=== PATIENT | female | born 1950 | race Caucasian/White ===

== ENCOUNTER 2016-12-08 18:36 | Inpatient (IN) | payer OTHER ==
[~2016-12-08] VITALS: Ht 152.4 cm; Wt 74.8 kg
[2016-12-08 20:13] LABS: BASOPHIL % 1.8 % (0-2); RED CELL DISTRIBUTION WIDTH 13.4 % (11.5-14.5)
[2016-12-08 20:23] LABS: CALCIUM 9.2 mg/dL (8.5-10.1); CHLORIDE SERUM 103 mmol/L (98-107); CREATININE SERUM 0.8 mg/dL (0.6-1.0); GFR1 > 60 mL/min; GLUCOSE SERUM 133 mg/dL (74-106); POTASSIUM SERUM 3.5 mmol/L (3.5-5.1); SODIUM SERUM 137 mmol/L (136-145)
[2016-12-08 20:24] LABS: PLATELET COUNT 594 x10^3mcL (130-400)
[2016-12-08 20:27] LABS: ALKALINE PHOSPHATASE 200 U/L (46-116); ALT/SGPT 75 U/L (14-59); AMYLASE 26 U/L (25-115); AST/SGOT 47 U/L (15-37); BILIRUBIN TOTAL 0.71 mg/dL (0.20-1.00); LIPASE 67 IU/L (73-393); TOTAL PROTEIN, SERUM 7.9 g/dL (6.4-8.2)
[2016-12-08 20:32] LABS: ALBUMIN 1.9 g/dL (3.4-5.0)
[2016-12-08] MEDS ORDERED: AMLODIPINE BES2.5 M1 PO (22:43)
[2016-12-08 23:12] LABS: UA SPECIFIC GRAVITY <=1.005 (1.005-1.035); microscopic required? YES; urine erythrocyte 2+ (NEGATIVE)
[2016-12-09 00:25] VITALS: BP 112/62
[2016-12-09 00:43] LABS: MAGNESIUM 2.2 mg/dL (1.8-2.4); PHOSPHOROUS 2.9 mg/dL (2.5-4.9); T3 TOTAL 0.78 ng/mL
[2016-12-09 00:44] LABS: CHOLESTEROL/HDL RATIO 4.6
[2016-12-09 00:51] LABS: T4(THYROXINE) 11.2 ug/dL (4.7-13.3)
[2016-12-09 00:52] LABS: FREE T4 2.07 ng/dL (0.76-1.46)
[2016-12-09 01:40] VITALS: Ht 152.4 cm; Wt 74.8 kg
[2016-12-09 06:43] VITALS: BP 115/68
[2016-12-09 07:13] LABS: CALCIUM 8.7 mg/dL (8.5-10.1); CARBON DIOXIDE 26.7 mmol/L (21-32); CHLORIDE SERUM 104 mmol/L (98-107); CREATININE SERUM 0.7 mg/dL (0.6-1.0); GFR1 > 60 mL/min; GLUCOSE SERUM 102 mg/dL (74-106); SODIUM SERUM 138 mmol/L (136-145)
[2016-12-09 07:18] LABS: BASOPHIL % 0.2 % (0-2); RED CELL DISTRIBUTION WIDTH 13.4 % (11.5-14.5)
[2016-12-09 07:19] LABS: PLATELET COUNT 604 x10^3mcL (130-400)
[2016-12-09 08:59] VITALS: BP 92/53
[2016-12-09 12:47] VITALS: BP 97/60
[2016-12-09 18:07] VITALS: BP 96/53
[2016-12-09 21:38] VITALS: BP 114/61
[2016-12-10 06:18] VITALS: BP 121/63
[2016-12-10 06:58] LABS: BASOPHIL % 0.5 % (0-2); RED CELL DISTRIBUTION WIDTH 13.5 % (11.5-14.5)
[2016-12-10 07:02] LABS: CALCIUM 8.1 mg/dL (8.5-10.1); CARBON DIOXIDE 24.8 mmol/L (21-32); CHLORIDE SERUM 106 mmol/L (98-107); CREATININE SERUM 0.7 mg/dL (0.6-1.0); GFR1 > 60 mL/min; GLUCOSE SERUM 117 mg/dL (74-106); POTASSIUM SERUM 3.9 mmol/L (3.5-5.1); SODIUM SERUM 138 mmol/L (136-145)
[2016-12-10 07:15] LABS: PLATELET COUNT 560 x10^3mcL (130-400)
[2016-12-10 09:13] VITALS: BP 112/76
[2016-12-10 12:30] VITALS: BP 103/61
[2016-12-10 17:53] VITALS: BP 133/72
[2016-12-10 21:55] VITALS: BP 90/55
[2016-12-11 06:04] VITALS: BP 97/63
[2016-12-11 06:07] LABS: RED CELL DISTRIBUTION WIDTH 13.5 % (11.5-14.5)
[2016-12-11 06:24] LABS: CALCIUM 7.6 mg/dL (8.5-10.1); CARBON DIOXIDE 25.3 mmol/L (21-32); CREATININE SERUM 1.1 mg/dL (0.6-1.0); POTASSIUM SERUM 4.4 mmol/L (3.5-5.1)
[2016-12-11 07:42] LABS: PLATELET COUNT 440 x10^3mcL (130-400)
[2016-12-11 09:37] VITALS: BP 99/68
[2016-12-11 10:44] LABS: BAND NEUTROPHIL 13 % (0-10); BASOPHIL 0 % (0-2); MONOCYTE 2 % (0-7); SEGMENTED NEUTROPHILS 82 % (37-75)
[2016-12-11 10:46] LABS: PLATELET MORPHOLOGY PLATELETS INCREASED
[2016-12-11 13:20] VITALS: BP 98/55
[2016-12-11 14:44] LABS: PLATELET COUNT 398 x10^3mcL (130-400); RED CELL DISTRIBUTION WIDTH 14.2 % (11.5-14.5)
[2016-12-11 15:09] LABS: BAND NEUTROPHIL 23 % (0-10); BASOPHIL 0 % (0-2); MONOCYTE 4 % (0-7); SEGMENTED NEUTROPHILS 70 % (37-75)
[2016-12-11 15:10] LABS: PLATELET MORPHOLOGY PLATELETS INCREASED
[2016-12-11 17:34] VITALS: BP 93/60
[2016-12-11 22:32] VITALS: BP 105/61
[2016-12-12 07:07] LABS: CALCIUM 7.8 mg/dL (8.5-10.1); CARBON DIOXIDE 24.3 mmol/L (21-32); CHLORIDE SERUM 112 mmol/L (98-107); CREATININE SERUM 0.7 mg/dL (0.6-1.0); GFR1 > 60 mL/min; GLUCOSE SERUM 89 mg/dL (74-106); SODIUM SERUM 142 mmol/L (136-145)
[2016-12-12 07:09] LABS: RED CELL DISTRIBUTION WIDTH 13.1 % (11.5-14.5)
[2016-12-12 07:10] VITALS: BP 116/63
[2016-12-12 07:13] LABS: PLATELET COUNT 429 x10^3mcL (130-400)
[2016-12-12 09:40] VITALS: BP 133/79
[2016-12-12 11:30] LABS: BAND NEUTROPHIL 19 % (0-10); BASOPHIL 0 % (0-2); MONOCYTE 2 % (0-7); PLATELET MORPHOLOGY PLATELETS INCREASED; SEGMENTED NEUTROPHILS 70 % (37-75); rbc morphology (normal/abnorm) ABNORMAL (NORMAL)
[2016-12-12] MEDS ORDERED: CIPRO500 MG PO (13:59)
[2016-12-12] MEDS ORDERED: ZOF4 PO (14:00)
[2016-12-12] MEDS ORDERED: LAC PO (14:00)
[2016-12-12] MEDS ORDERED: APAP/HYDROCODON1 T13 PO (14:00)
[2016-12-12] MEDS ORDERED: COL100 PO (14:01)
[2016-12-12] MEDS ORDERED: ASPIR 8181 MG PO (14:18)
[2016-12-12] MEDS ORDERED: LIPI10 PO (14:18)
[2016-12-12 14:40] VITALS: BP 145/80
[2016-12-12 14:41] VITALS: BP 133/79
== END 2016-12-12 17:58 | disposition home or self-care (01) | DRG 668 ==
LOC: ED 18:36 → DU 22:00 → MU 12-12 06:04
PROVIDERS: Emergency Medicine; Family Medicine; Urology; ADMIT Family Medicine
PROC: BT1FYZZ Fluoroscopy of Left Kidney, Ureter and Bladder using Other Contrast (ICD-10-PCS; 2016-12-10)
PROC: 0T778DZ Dilation of Left Ureter with Intraluminal Device, Via Natural or Artificial Opening Endoscopic (ICD-10-PCS; principal; 2016-12-10 15:00)
PROC: 0TC78ZZ Extirpation of Matter from Left Ureter, Via Natural or Artificial Opening Endoscopic (ICD-10-PCS; principal; 2016-12-10 15:00)
DX: N13.2 Hydronephrosis with renal and ureteral calculous obstruction (principal); E43 Unspecified severe protein-calorie malnutrition; Q61.4 Renal dysplasia; N39.0 Urinary tract infection, site not specified; N13.30 Unspecified hydronephrosis; N17.0 Acute kidney failure with tubular necrosis; I10 Essential (primary) hypertension; D64.9 Anemia, unspecified; D47.3 Essential (hemorrhagic) thrombocythemia; E66.9 Obesity, unspecified; I69.320 Aphasia following cerebral infarction; Z68.32 Body mass index [BMI] 32.0-32.9, adult; I69.364 Other paralytic syndrome following cerebral infarction affecting left non-dominant side
CPT/HCPCS: 51610; 83880; 84439; 90732; 94150; C1758; C1769; C2625; J0696; J1170; J1885; J2270; J2405; J2704; J3010; J3490; J7030; J7120; Q0092; Q9967

== ENCOUNTER 2017-08-20 18:16 | Inpatient (IN) | payer OTHER ==
[~2017-08-20] VITALS: Ht 152.4 cm; Wt 60.0 kg
[~2017-08-20 18:16] MED LIST: AMLODIPINE BES2.5 M1 PO; APAP/HYDROCODON1 T13 PO; ASPIR 8181 MG PO; CIPRO500 MG PO; COL100 PO; LAC PO; LIPI10 PO; ZOF4 PO
[2017-08-20 19:02] LABS: BASOPHIL % 0.1 % (0-2)
[2017-08-20 19:05] LABS: PLATELET COUNT 551 x10^3mcL (130-400)
[2017-08-20 19:07] LABS: CALCIUM 8.6 mg/dL (8.5-10.1); CARBON DIOXIDE 26.2 mmol/L (21-32); CHLORIDE SERUM 97 mmol/L (98-107); CREATININE SERUM 0.9 mg/dL (0.6-1.0); GFR1 > 60 mL/min; GLUCOSE SERUM 102 mg/dL (74-106); POTASSIUM SERUM 4.3 mmol/L (3.5-5.1); SODIUM SERUM 129 mmol/L (136-145)
[2017-08-20 19:12] LABS: ALBUMIN 1.8 g/dL (3.4-5.0); ALKALINE PHOSPHATASE 201 U/L (46-116); ALT/SGPT 130 U/L (14-59); AST/SGOT 147 U/L (15-37); TOTAL PROTEIN, SERUM 9.4 g/dL (6.4-8.2); UA SPECIFIC GRAVITY 1.015 (1.005-1.035); microscopic required? YES
[2017-08-20 19:14] LABS: urine erythrocyte 3+ (NEGATIVE)
[2017-08-20 19:55] LABS: MAGNESIUM 1.8 mg/dL (1.8-2.4); PHOSPHOROUS 2.7 mg/dL (2.5-4.9)
[2017-08-20 20:02] LABS: T3 TOTAL 0.71 ng/mL
[2017-08-20 20:03] LABS: FREE T4 1.53 ng/dL (0.76-1.46); FREE THYROXINE INDEX 3.6 ug/dL (1.4-4.5); T4(THYROXINE) 10.4 ug/dL (4.7-13.3)
[2017-08-20 20:34] VITALS: BP 138/75
[2017-08-20 20:48] VITALS: BP 135/75
[2017-08-21 01:15] VITALS: BP 135/75
[2017-08-21 06:22] VITALS: BP 99/68
[2017-08-21 07:01] LABS: CALCIUM 8.4 mg/dL (8.5-10.1); CHLORIDE SERUM 102 mmol/L (98-107); CREATININE SERUM 0.8 mg/dL (0.6-1.0); GFR1 > 60 mL/min; GLUCOSE SERUM 77 mg/dL (74-106); POTASSIUM SERUM 4.2 mmol/L (3.5-5.1); SODIUM SERUM 136 mmol/L (136-145)
[2017-08-21 08:27] LABS: BASOPHIL % 0.9 % (0-2); PLATELET COUNT 390 x10^3mcL (130-400)
[2017-08-21 08:28] LABS: RED CELL DISTRIBUTION WIDTH 18.3 % (11.5-14.5)
[2017-08-21 08:29] LABS: rbc morphology (normal/abnorm) ABNORMAL (NORMAL)
[2017-08-21 09:35] VITALS: BP 134/75
[2017-08-21 11:04] LABS: IRON 51 ug/dL (50-170); TOTAL IRON BINDING CAPACITY 263 ug/dL (250-450)
[2017-08-21 11:21] LABS: RED BLOOD CELLS 3.74 M/mm3 (4.10-5.10)
[2017-08-21 13:32] VITALS: BP 109/59
[2017-08-21 17:58] VITALS: BP 135/80
[2017-08-21 21:10] VITALS: BP 111/51
[2017-08-22 05:24] VITALS: BP 120/76
[2017-08-22 06:37] LABS: BASOPHIL % 0.6 % (0-2); PLATELET COUNT 391 x10^3mcL (130-400)
[2017-08-22 06:47] LABS: RED CELL DISTRIBUTION WIDTH 18.2 % (11.5-14.5); rbc morphology (normal/abnorm) ABNORMAL (NORMAL)
[2017-08-22 06:48] LABS: CALCIUM 7.9 mg/dL (8.5-10.1); CARBON DIOXIDE 26.5 mmol/L (21-32); CHLORIDE SERUM 102 mmol/L (98-107); CREATININE SERUM 0.8 mg/dL (0.6-1.0); GFR1 > 60 mL/min; GLUCOSE SERUM 73 mg/dL (74-106); MAGNESIUM 2.1 mg/dL (1.8-2.4); PHOSPHOROUS 4.3 mg/dL (2.5-4.9); POTASSIUM SERUM 4.1 mmol/L (3.5-5.1); SODIUM SERUM 135 mmol/L (136-145)
[2017-08-22 08:55] VITALS: BP 121/76
[2017-08-22 13:56] VITALS: BP 106/70
[2017-08-22 17:27] VITALS: BP 117/72
[2017-08-22 20:18] VITALS: BP 118/57
[2017-08-23 05:06] VITALS: BP 113/57
[2017-08-23 09:22] VITALS: BP 111/49
[2017-08-23 13:18] VITALS: BP 116/76
[2017-08-23 17:30] VITALS: BP 110/57
[2017-08-23 20:33] VITALS: BP 127/77
[2017-08-24 04:57] VITALS: BP 134/68
[2017-08-24 06:19] LABS: CARBON DIOXIDE 26.1 mmol/L (21-32); CHLORIDE SERUM 105 mmol/L (98-107); CREATININE SERUM 0.6 mg/dL (0.6-1.0); GFR1 > 60 mL/min; GLUCOSE SERUM 78 mg/dL (74-106); MAGNESIUM 1.6 mg/dL (1.8-2.4); PHOSPHOROUS 2.7 mg/dL (2.5-4.9); POTASSIUM SERUM 3.9 mmol/L (3.5-5.1); SODIUM SERUM 138 mmol/L (136-145)
[2017-08-24 06:27] LABS: BILIRUBIN DIRECT 0.13 mg/dL (0.0-0.2); BILIRUBIN TOTAL 0.2 mg/dL (0.20-1.00)
[2017-08-24 06:29] LABS: ALBUMIN 1.3 g/dL (3.4-5.0)
[2017-08-24 08:23] LABS: PLATELET COUNT 305 x10^3mcL (130-400)
[2017-08-24 08:24] LABS: BASOPHIL % 0 % (0-2)
[2017-08-24 10:13] VITALS: BP 113/70
[2017-08-24 12:50] VITALS: BP 117/64
[2017-08-24 17:24] VITALS: BP 119/68
[2017-08-24 20:33] VITALS: BP 111/53
[2017-08-25 06:22] VITALS: BP 125/67
[2017-08-25 06:24] LABS: CALCIUM 7.6 mg/dL (8.5-10.1); CARBON DIOXIDE 27.2 mmol/L (21-32); CHLORIDE SERUM 106 mmol/L (98-107); CREATININE SERUM 0.7 mg/dL (0.6-1.0); GFR1 > 60 mL/min; GLUCOSE SERUM 82 mg/dL (74-106); POTASSIUM SERUM 3.7 mmol/L (3.5-5.1); SODIUM SERUM 141 mmol/L (136-145)
[2017-08-25 06:56] LABS: BASOPHIL % 0.1 % (0-2); PLATELET COUNT 392 x10^3mcL (130-400)
[2017-08-25 07:22] LABS: rbc morphology (normal/abnorm) ABNORMAL (NORMAL)
[2017-08-25 09:19] VITALS: BP 138/72
[2017-08-25 11:17] VITALS: Ht 152.4 cm; Wt 60.0 kg
[2017-08-25 17:34] VITALS: BP 110/62
[2017-08-25 17:36] VITALS: BP 119/43
[2017-08-25 21:32] VITALS: BP 111/64
[2017-08-26 05:24] VITALS: BP 109/69
[2017-08-26 07:19] LABS: PLATELET COUNT 441 x10^3mcL (130-400); RED CELL DISTRIBUTION WIDTH 18.6 % (11.5-14.5)
[2017-08-26 09:17] VITALS: BP 116/67
[2017-08-26 10:12] LABS: BAND NEUTROPHIL 12 % (0-10); BASOPHIL 0 % (0-2); METAMYELOCTE 1 % (0-2); MONOCYTE 2 % (0-7); SEGMENTED NEUTROPHILS 80 % (37-75)
[2017-08-26 10:15] LABS: PLATELET MORPHOLOGY PLATELETS INCREASED; rbc morphology (normal/abnorm) ABNORMAL (NORMAL)
[2017-08-26 12:58] VITALS: BP 114/71
[2017-08-26 13:13] LABS: PLATELET COUNT 414 x10^3mcL (130-400); RED CELL DISTRIBUTION WIDTH 18.6 % (11.5-14.5)
[2017-08-26 13:35] LABS: BAND NEUTROPHIL 6 % (0-10); BASOPHIL 0 % (0-2); MONOCYTE 1 % (0-7); SEGMENTED NEUTROPHILS 90 % (37-75); ovalocyte/elliptocyte 1+; rbc morphology (normal/abnorm) ABNORMAL (NORMAL)
[2017-08-26 13:37] LABS: PLATELET MORPHOLOGY LARGE PLATELET SEEN
[2017-08-26 17:12] VITALS: BP 135/69
[2017-08-26 21:18] VITALS: BP 113/65
[2017-08-27 05:54] VITALS: BP 117/63
[2017-08-27 06:49] LABS: PLATELET COUNT 399 x10^3mcL (130-400)
[2017-08-27 07:12] LABS: ALKALINE PHOSPHATASE 186 U/L (46-116); ALT/SGPT 21 U/L (14-59); AST/SGOT 19 U/L (15-37); BILIRUBIN TOTAL 0.52 mg/dL (0.20-1.00); CALCIUM 8.5 mg/dL (8.5-10.1); CARBON DIOXIDE 23.5 mmol/L (21-32); CHLORIDE SERUM 112 mmol/L (98-107); CREATININE SERUM 0.8 mg/dL (0.6-1.0); GFR1 > 60 mL/min; GLUCOSE SERUM 76 mg/dL (74-106); SODIUM SERUM 145 mmol/L (136-145)
[2017-08-27 07:14] LABS: ALBUMIN 1.4 g/dL (3.4-5.0)
[2017-08-27 07:24] LABS: RED CELL DISTRIBUTION WIDTH 19.1 % (11.5-14.5)
[2017-08-27 10:38] VITALS: BP 122/61
[2017-08-27 10:44] LABS: BAND NEUTROPHIL 4 % (0-10); BASOPHIL 0 % (0-2); MONOCYTE 3 % (0-7); SEGMENTED NEUTROPHILS 87 % (37-75)
[2017-08-27 10:45] LABS: PLATELET MORPHOLOGY PLATELETS INCREASED; rbc morphology (normal/abnorm) ABNORMAL (NORMAL)
[2017-08-27 10:46] LABS: ovalocyte/elliptocyte 1+
[2017-08-27 14:15] VITALS: BP 109/60
[2017-08-27 15:41] LABS: CALCIUM 8.3 mg/dL (8.5-10.1); CARBON DIOXIDE 22.1 mmol/L (21-32); CHLORIDE SERUM 115 mmol/L (98-107); CREATININE SERUM 0.9 mg/dL (0.6-1.0); GFR1 > 60 mL/min; GLUCOSE SERUM 90 mg/dL (74-106); SODIUM SERUM 148 mmol/L (136-145)
[2017-08-27 15:45] LABS: POTASSIUM SERUM 2.6 mmol/L (3.5-5.1)
[2017-08-27 17:50] VITALS: BP 102/67
[2017-08-27 21:40] VITALS: BP 112/61
[2017-08-28 02:01] LABS: CALCIUM 8.3 mg/dL (8.5-10.1); POTASSIUM SERUM 4.5 mmol/L (3.5-5.1)
[2017-08-28 05:30] VITALS: BP 103/65
[2017-08-28 06:27] LABS: CALCIUM 8.5 mg/dL (8.5-10.1); CARBON DIOXIDE 22.5 mmol/L (21-32); POTASSIUM SERUM 4.6 mmol/L (3.5-5.1)
[2017-08-28 07:07] LABS: PLATELET COUNT 461 x10^3mcL (130-400); RED CELL DISTRIBUTION WIDTH 19.3 % (11.5-14.5)
[2017-08-28 10:31] LABS: BAND NEUTROPHIL 1 % (0-10); MONOCYTE 6 % (0-7); SEGMENTED NEUTROPHILS 85 % (37-75)
[2017-08-28 10:32] LABS: rbc morphology (normal/abnorm) ABNORMAL (NORMAL)
[2017-08-28 10:33] LABS: PLATELET MORPHOLOGY PLT CLUMPS SEEN; ovalocyte/elliptocyte 1+; schistocyte (helmet cell) 1+
[2017-08-28 11:10] VITALS: BP 115/74
[2017-08-28 15:13] VITALS: BP 120/80
[2017-08-28 17:45] VITALS: BP 138/75
[2017-08-28 21:47] VITALS: BP 125/86
[2017-08-29 06:21] LABS: CALCIUM 8.8 mg/dL (8.5-10.1); CARBON DIOXIDE 21.4 mmol/L (21-32); CHLORIDE SERUM 119 mmol/L (98-107); CREATININE SERUM 0.9 mg/dL (0.6-1.0); GFR1 > 60 mL/min; GLUCOSE SERUM 131 mg/dL (74-106); MAGNESIUM 2.2 mg/dL (1.8-2.4); PHOSPHOROUS 3.1 mg/dL (2.5-4.9); POTASSIUM SERUM 3.3 mmol/L (3.5-5.1); SODIUM SERUM 151 mmol/L (136-145)
[2017-08-29 06:29] VITALS: BP 118/82
[2017-08-29 07:05] LABS: RED CELL DISTRIBUTION WIDTH 19.8 % (11.5-14.5)
[2017-08-29 07:06] LABS: PLATELET COUNT 590 x10^3mcL (130-400)
[2017-08-29 10:18] LABS: BAND NEUTROPHIL 3 % (0-10); BASOPHIL 0 % (0-2); MONOCYTE 6 % (0-7); MYELOCYTE 1 % (0-2); PLATELET MORPHOLOGY PLATELETS INCREASED; SEGMENTED NEUTROPHILS 81 % (37-75); rbc morphology (normal/abnorm) ABNORMAL (NORMAL)
[2017-08-29 10:19] LABS: ovalocyte/elliptocyte 1+; schistocyte (helmet cell) 1+
[2017-08-29 11:13] VITALS: BP 121/70
[2017-08-29 14:11] VITALS: BP 118/68
[2017-08-29 17:30] VITALS: BP 141/60
[2017-08-29 21:52] VITALS: BP 135/76
[2017-08-30 06:54] VITALS: BP 137/71
[2017-08-30 08:02] LABS: RED CELL DISTRIBUTION WIDTH 20.2 % (11.5-14.5)
[2017-08-30 08:06] LABS: PLATELET COUNT 528 x10^3mcL (130-400)
[2017-08-30 08:21] LABS: CALCIUM 8.4 mg/dL (8.5-10.1); CARBON DIOXIDE 24.2 mmol/L (21-32); CHLORIDE SERUM 120 mmol/L (98-107); CREATININE SERUM 0.8 mg/dL (0.6-1.0); GFR1 > 60 mL/min; GLUCOSE SERUM 77 mg/dL (74-106); SODIUM SERUM 153 mmol/L (136-145)
[2017-08-30 08:26] LABS: POTASSIUM SERUM 2.6 mmol/L (3.5-5.1)
[2017-08-30 09:28] VITALS: BP 147/67
[2017-08-30 12:36] VITALS: BP 119/71
[2017-08-30 17:32] VITALS: BP 109/66
[2017-08-30 19:00] LABS: BAND NEUTROPHIL 4 % (0-10); METAMYELOCTE 1 % (0-2); MONOCYTE 6 % (0-7); SEGMENTED NEUTROPHILS 80 % (37-75)
[2017-08-30 19:01] LABS: PLATELET MORPHOLOGY PLATELETS INCREASED; ovalocyte/elliptocyte 1+; rbc morphology (normal/abnorm) ABNORMAL (NORMAL)
[2017-08-30 21:01] VITALS: BP 123/69
[2017-08-31] VITALS (7 sets, daily range): BP systolic 108–157; BP diastolic 53–81
[2017-08-31 06:57] LABS: CALCIUM 8.3 mg/dL (8.5-10.1); CARBON DIOXIDE 23.8 mmol/L (21-32); CHLORIDE SERUM 120 mmol/L (98-107); CREATININE SERUM 0.7 mg/dL (0.6-1.0); GFR1 > 60 mL/min; GLUCOSE SERUM 108 mg/dL (74-106); POTASSIUM SERUM 3.7 mmol/L (3.5-5.1); SODIUM SERUM 149 mmol/L (136-145)
[2017-08-31 07:03] LABS: PLATELET COUNT 477 x10^3mcL (130-400); RED CELL DISTRIBUTION WIDTH 19.6 % (11.5-14.5)
[2017-08-31 10:52] LABS: BAND NEUTROPHIL 4 % (0-10); BASOPHIL 0 % (0-2); METAMYELOCTE 1 % (0-2); MONOCYTE 5 % (0-7); SEGMENTED NEUTROPHILS 78 % (37-75)
[2017-08-31 10:53] LABS: PLATELET MORPHOLOGY PLATELETS INCREASED; rbc morphology (normal/abnorm) ABNORMAL (NORMAL)
[2017-08-31 10:58] LABS: burr cell (echinocyte) 1+; ovalocyte/elliptocyte 1+; target cell (codocyte) 1+
[2017-09-01 04:44] VITALS: BP 136/76
[2017-09-01 06:52] LABS: BASOPHIL % 0.2 % (0-2)
[2017-09-01 07:22] LABS: RED CELL DISTRIBUTION WIDTH 19.9 % (11.5-14.5)
[2017-09-01 07:23] LABS: PLATELET COUNT 550 x10^3mcL (130-400)
[2017-09-01 08:47] LABS: rbc morphology (normal/abnorm) ABNORMAL (NORMAL); target cell (codocyte) 1+
[2017-09-01 09:14] VITALS: BP 127/79
[2017-09-01 12:41] VITALS: BP 103/74
[2017-09-01 17:37] VITALS: BP 133/76
[2017-09-01 20:54] VITALS: BP 113/69
[2017-09-02 05:03] VITALS: BP 111/63
[2017-09-02 06:59] LABS: BASOPHIL % 0.5 % (0-2)
[2017-09-02 07:33] LABS: PLATELET COUNT 527 x10^3mcL (130-400); RED CELL DISTRIBUTION WIDTH 19.5 % (11.5-14.5)
[2017-09-02 08:42] LABS: target cell (codocyte) 1+
[2017-09-02 08:43] LABS: ovalocyte/elliptocyte 1+; rbc morphology (normal/abnorm) ABNORMAL (NORMAL)
[2017-09-02 09:49] VITALS: BP 108/70
[2017-09-02 13:15] LABS: ALKALINE PHOSPHATASE 130 U/L (46-116); ALT/SGPT 11 U/L (14-59); AST/SGOT 18 U/L (15-37); BILIRUBIN TOTAL 0.31 mg/dL (0.20-1.00); CALCIUM 8.6 mg/dL (8.5-10.1); CARBON DIOXIDE 30.5 mmol/L (21-32); CHLORIDE SERUM 108 mmol/L (98-107); CREATININE SERUM 0.7 mg/dL (0.6-1.0); GFR1 > 60 mL/min; GLUCOSE SERUM 98 mg/dL (74-106); POTASSIUM SERUM 3.4 mmol/L (3.5-5.1); SODIUM SERUM 144 mmol/L (136-145); TOTAL PROTEIN, SERUM 6.7 g/dL (6.4-8.2)
[2017-09-02 13:20] LABS: ALBUMIN 1.5 g/dL (3.4-5.0)
[2017-09-02 14:04] VITALS: BP 111/66
[2017-09-02 16:18] LABS: BASOPHIL % 0.5 % (0-2)
[2017-09-02 16:20] LABS: PLATELET COUNT 630 x10^3mcL (130-400)
[2017-09-02 17:57] VITALS: BP 125/72
[2017-09-02 21:51] VITALS: BP 122/71
[2017-09-02 22:22] LABS: BASOPHIL % 0.6 % (0-2)
[2017-09-02 22:31] LABS: PLATELET COUNT 556 x10^3mcL (130-400); RED CELL DISTRIBUTION WIDTH 20.1 % (11.5-14.5)
[2017-09-03 06:08] VITALS: BP 121/69
[2017-09-03 06:37] LABS: CALCIUM 7.9 mg/dL (8.5-10.1); CARBON DIOXIDE 29.4 mmol/L (21-32); CHLORIDE SERUM 109 mmol/L (98-107); CREATININE SERUM 0.6 mg/dL (0.6-1.0); GFR1 > 60 mL/min; GLUCOSE SERUM 82 mg/dL (74-106); POTASSIUM SERUM 3.2 mmol/L (3.5-5.1); SODIUM SERUM 142 mmol/L (136-145)
[2017-09-03 06:45] LABS: BASOPHIL % 0.4 % (0-2)
[2017-09-03 07:14] LABS: PLATELET COUNT 579 x10^3mcL (130-400); RED CELL DISTRIBUTION WIDTH 19.7 % (11.5-14.5)
[2017-09-03 10:27] VITALS: BP 118/59
[2017-09-03 12:00] VITALS: BP 116/72
[2017-09-03] MEDS ORDERED: FLA500 PO (13:09)
[2017-09-03] MEDS ORDERED: NATURAL IRON65 MG PO (13:16)
[2017-09-03 14:41] VITALS: BP 116/72
[2017-09-03 18:22] VITALS: BP 92/49
== END 2017-09-03 19:30 | disposition home health service (06) | DRG 871 ==
LOC: ED 18:16 → MU 19:09 → DU 19:09 → MU 08-24 10:16 → DU 08-26 10:54
PROVIDERS: Emergency Medicine; Student in an Organized Health Care Education/Training Program; ADMIT Family Medicine
DX: A41.9 Sepsis, unspecified organism (principal); J69.0 Pneumonitis due to inhalation of food and vomit; N17.0 Acute kidney failure with tubular necrosis; E43 Unspecified severe protein-calorie malnutrition; N39.0 Urinary tract infection, site not specified; E87.1 Hypo-osmolality and hyponatremia; I69.354 Hemiplegia and hemiparesis following cerebral infarction affecting left non-dominant side; D62 Acute posthemorrhagic anemia; N13.1 Hydronephrosis with ureteral stricture, not elsewhere classified; R65.20 Severe sepsis without septic shock; I69.191 Dysphagia following nontraumatic intracerebral hemorrhage; R13.10 Dysphagia, unspecified; K21.9 Gastro-esophageal reflux disease without esophagitis; R31.9 Hematuria, unspecified; I69.121 Dysphasia following nontraumatic intracerebral hemorrhage; B96.1 Klebsiella pneumoniae [K. pneumoniae] as the cause of diseases classified elsewhere; I10 Essential (primary) hypertension; D50.9 Iron deficiency anemia, unspecified; E03.9 Hypothyroidism, unspecified; Z68.25 Body mass index [BMI] 25.0-25.9, adult; Z79.82 Long term (current) use of aspirin; Z79.891 Long term (current) use of opiate analgesic
CPT/HCPCS: 36600; 43235; 45378; 76770; 82962; 83880; 84439; 92610; J0696; J1200; J1610; J1885; J1940; J1956; J2250; J2310; J2405; J2543; J2550; J2765; J2916; J3010; J3475; J3480; J3490; J7030; J7040; J7042; J7620; P9016; Q0092; Q0163

== ENCOUNTER 2019-05-13 14:14 | Inpatient (IN) | payer OTHER ==
[~2019-05-13] VITALS: Ht 152.4 cm; Wt 54.4 kg
[~2019-05-13 14:14] MED LIST changes: +FLA500 PO; +NATURAL IRON65 MG PO
[2019-05-13 14:52] VITALS: Ht 152.4 cm; Wt 54.4 kg
--- NOTE | 2019-05-13 15:14 | NUR ---
DR HORVATH MADE AWARE OF ELEVATED TEMP. PER DR HORVATH, OBTAIN RECTAL TEMP.
--- NOTE | 2019-05-13 16:28 | NUR ---
PT LAYING COMFORTABLY IN GURNEY. ANOX4, RESP E/U, [id number] AT BEDSIDE. NAD NOTED. PERICARE PERFORMED, PATIENT TOLERATED.
[2019-05-13 16:32] LABS: UA SPECIFIC GRAVITY 1.015 (1.005-1.035); microscopic required? YES; urine erythrocyte 3+ (NEGATIVE)
[2019-05-13 16:35] LABS: BASOPHIL % 0.2 % (0-2)
[2019-05-13 16:42] LABS: PLATELET COUNT 500 x10^3mcL (130-400); RED CELL DISTRIBUTION WIDTH 18.5 % (11.5-14.5)
--- NOTE | 2019-05-13 16:47 | NUR ---
PT TAKEN TO CT VIA SHANTANU MAGAÑA NOTED.
[2019-05-13 16:57] LABS: CALCIUM 7.6 mg/dL (8.5-10.1); CARBON DIOXIDE 22.6 mmol/L (21-32); CHLORIDE SERUM 102 mmol/L (98-107); CREATININE SERUM 0.7 mg/dL (0.6-1.0); GFR1 > 60 mL/min; GLUCOSE SERUM 156 mg/dL (74-106); POTASSIUM SERUM 3.8 mmol/L (3.5-5.1); SODIUM SERUM 136 mmol/L (136-145)
[2019-05-13 16:58] LABS: T3 TOTAL 0.9 ng/mL
[2019-05-13 17:03] LABS: ALBUMIN 1.4 g/dL (3.4-5.0); ALKALINE PHOSPHATASE 253 U/L (46-116); ALT/SGPT 29 U/L (14-59); AST/SGOT 23 U/L (15-37); BILIRUBIN TOTAL 0.3 mg/dL (0.20-1.00); TOTAL PROTEIN, SERUM 7.8 g/dL (6.4-8.2)
[2019-05-13 17:04] LABS: C REACTIVE PROTEIN 17.1 mg/dL (<=0.9)
--- NOTE | 2019-05-13 17:17 | NUR ---
PT MEDICATED PER ORDER. PT VERBALIZED UNDERSTANDING OF MEDICATION PRIOR TO ADMINISTRATION. PT LAYING COMFORTABLY IN GURNEY. PILLOW PLACED UNDERNEATH LEFT SIDE FOR COMFORT. RESP E/U, NAD NOTED.
[2019-05-13 17:19] LABS: CK-MB < 0.5 ng/mL (0-3.6); CREATINE KINASE 8 U/L (26-192)
--- NOTE | 2019-05-13 17:27 | NUR ---
PER PT, SHE DOES NOT TAKE ANY MEDICATIONS ON A DAILY BASIS.
[2019-05-13 17:43] LABS: FREE T4 1.6 ng/dL (0.76-1.46); FREE THYROXINE INDEX 3.8 ug/dL (1.4-4.5); T4(THYROXINE) 10.2 ug/dL (4.7-13.3)
--- NOTE | 2019-05-13 17:53 | NUR ---
PT HAD BM X1. PERICARE PERFORMED AND PT TURNED ONTO HER RIGHT SIDE. SMALL, SUPERFICIAL WOUND NOTED TO LOWER LEFT BUTTOCK. MADE AWARE.
[2019-05-13 17:55] LABS: ERYTHROCYTE SED RATE 111 mm/hr (0-30)
--- NOTE | 2019-05-13 19:35 | NUR ---
IV FLAGYL INITIATED. PT VERBALIZED UNDERSTANDING PRIOR TO ADMINISTRATION. NO REDNESS OR SWELLING NOTED AT IV SITE. PT IS AWAKE AND ALERT, RESP E/U, NAD NOTED. ULTRA SOUND AT BEDSIDE FOR EVALUATION.
--- NOTE | 2019-05-13 20:11 | NUR ---
REPORT CALLED TO KELSI SOSA TO ASSUME CARE FOR PT.
--- NOTE | 2019-05-13 20:15 | NUR ---
PT TRANSPORTED TO [facility] AT THIS TIME, BY EMT ABHI AND KELSI SCHWARTZ. PT IS AWAKE, ALERT, RESP E/U, VERBALIZED UNDERSTANDING OF PLAN OF CARE PRIOR TO TRANSPORT. PT IS ACCOMPANIED BY FAMILY MEMBERS. NAD NOTED UPON LEAVING ED ON GURNEY. KELSI SOSA AWARE OF NEED TO CONTINUE FLAGYL INFUSION.
[2019-05-13 21:08] VITALS: BP 107/52
--- NOTE | 2019-05-13 21:11 | NUR ---
PATIENT ASKING FOR WATER. NO DIET ORDER AT THIS TIME. PER FAMILY, PATIENT IS NORMALLY ON A PUREE DIET AT HOME AND IS ABLE TO DRINK WATER ONLY WITH HOB ELEVATED TO HIGH FOLWERS. RELAYED INFORMATION TO DR DUARTE. NO NEW ORDERS AT THIS TIME
--- NOTE | 2019-05-13 21:23 | NUR ---
RECEIVED PT FROM ER, PT ADMIT FOR SEVERE SEPSIS, LL PNA, UTI, PT IS A/O X4, VERBAL RESPONSIVE, LEFT EYE VISION DEFICIT. LEFT SIDE WEAKNESS, DUE TO HX CVA, LUNG SOUND DIM DICK, DENY ANY SOB AT THIS TIME, PO2 98% IN ROOM AIR, PT IS ON TELE 10, NSR, DENY ANY CHEST PAIN OR DISCOMFORT, BOWEL SOUND PRESENT ALL 4 QUADRANTS, NO DISTENTION, NO TENDER. PEDAL PULSE PRESENT BOTH FEET, IV AT RIGHT HAND, NO LEAKING, NO INFILTRAITON. THERE IS A OPEN WOUND AT LEFT BUTTOCK AND DRY SKIN ON THE FOOTS. ALL ADLS ASSIST, ALL NEED MET, CALL LIGHT IN REACH, WILL CONTINUE TO MONITOR.
--- NOTE | 2019-05-13 21:30 | NUR ---
RECEIVED PATIENT FROM KELSI BURRIS. PATIENT SEEN RESTING IN BED COMFORTABLY WITH FAMILY AT BEDSIDE. NO DISTRESS NOTED. DENIES CHEST PAIN/PRESSURE. NO C/O PAIN AT THIS TIME. FLAGYL INFUSING TO RH IV. NO REDNESS OR SWELLING NOTED. PROD COUGH NOTED. BREATHING EVEN AND UNLABORED ON ROOM AIR. NO SOB OR RESP DISTRESS NOTED. LEFT EYE VISION DEFICIT. 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 LEFT BUTTOCK WOUND NOTED. DRY SKIN TO BILATERALLY FEET WITH BILATERALLY FOOT DROP NOTED. COMFORT AND SAFETY MEASURES IN PLACE. BED IS LOCKED AND IN THE LOWEST POSITION. SIDE RAILS UP X2. CALL LIGHT IS WITHIN REACH. WILL CONTINUE TO MONITOR.
--- NOTE | 2019-05-13 22:20 | NUR ---
RH 20G IV INFILTRATED. REMOVED WITH CATHETER IN PLACE. ATTEMPTED TO PLACE NEW IV X2. WITHOUT SUCCESS. WILL LET PATIENT REST A THIS TIME. NO DISTRESS NOTED. BREATHING EVEN ON ROOM AIR. CALL LIGHT IS WITHIN REACH. BED IN LOWEST POSITION. CALL LIGHT IS WITHIN REACH. WILL CONTINUE TO MONITOR.
--- NOTE | 2019-05-13 22:30 | NUR ---
NEW IV PLACE TO RFA, 22G, BY KELSI BURRIS. FLUSHES WELL. PATENT AND INTACT. PATIENT TOLERATED WELL. WILL CONTINUE TO MONITOR.
--- NOTE | 2019-05-14 00:30 | NUR ---
PAGE GATED DR DUARTE TO CHANGE PO SINCE MEDS NEED TO BE CRUSHED FOR THE PATIENT. FERROUS SULFATE AND COLACE CAN'T BE CRUSHED. NO NEW ORDERS AT THIS TIME.
--- NOTE | 2019-05-14 03:08 | NUR ---
RESTING IN BED COMFORTABLY. NO DISTRESS NOTED. DENIES PAIN AT THIS TIME. NO C/O CHEST PAIN. PROD COUCH NOTED. IV INFUSING WELL. PATENT AND INTACT. NO REDNESS OR SWELLING NOTED. NO S/S OF INFILTRATION. BREATHING EVEN AND UNLABORED ON ROOM AIR. EVEN AND SYMMETRIC CHEST RISE AND FALL. SAFETY MEASURES IN PLACE. CALL LIGHT IS WITHIN REACH. WILL CONTINUE TO MONITOR.
--- NOTE | 2019-05-14 03:55 | NUR ---
LEFT BUTTOCK WOUND PHOTO COULD NOT BE FOUND FROM ED. ED SAID IT WAS BROUGHT UP. NEW PHOTO TAKEN. ERYTHEMA/ NONBLANCHABLE REDNESS NOTED. TO THE SACRAL COCCYX. PHOTO TAKEN WELL. CLEANSE WITH NS, APPLIED ZGUARD, AND COVER WITH OPTIFOAM. PATIENT VOIDED X1. CHANGED WITH BOONE MACK. REPOSITIONED PATIENT TO COMFORT. NO DISTRESS NOTED. BREATHING EVEN AND UNLABORED ON ROOM AIR. DENIES PAIN. SAFETY MEASURES IN PLACE. CALL LIGHT IS WITHIN REACH. WILL CONTINUE TO MONITOR.
--- NOTE | 2019-05-14 06:08 | NUR ---
PAGE GATED DR DUARTE FOR [facility] CONSULT FOR DRY, LONG, AND YELLOW TOE NAILS.
--- NOTE | 2019-05-14 06:15 | NUR ---
RESTED IN LONG INTERVALS THROUGHOUT THE NIGHT. NO ACUTE CHANGES NOTED. NO DISTRESS NOTED. BREATHING EVEN AND UNLABORED ON ROOM AIR. NO SOB OR RESP DISTRESS NOTED. IV TO THE RFA INFUSING WELL. PATENT AND INTACT. NO REDNESS OR SWELLING NOTED. NO C/O PAIN THROUGHOUT THE NIGHT. LEFT BUTTOCK WOUND-EMAIL MARKETING PROCESSOR, SACRAL COCCYX W/ OPTIFOAM-CDI, AND BILATERALY FEET/TOE DRYNESS. LEFT SIDED WEAKNESS WITH LEDTR HAND CONTRACTURE. SAFETY MEASURES IN PLACE. ALL NEEDS AND CONCERNS ADDRESSED. CALL LIGHT IS WITHIN REACH. WILL ENDORSE CARE TO DAY SHIFT RN.
[2019-05-14 06:33] VITALS: BP 104/48
[2019-05-14 07:03] LABS: BASOPHIL % 1.5 % (0-2)
--- NOTE | 2019-05-14 07:10 | NUR ---
RECEIVED PT FROM NOC RN. PT RESTING IN BED WITH BOTH EYES CLOSED. EASILY AROUASBLE TO VERBAL STIMULI. SPEAKS SCOTTISH. AA/OX4. NO COMPLAINT OF CHEST PAIN. NO SOB ON ROOM AIR AT THIS TIME. NO S/S OF ACUTE DISTRESS. SCDS IN PLACE BLE. OPTIFOAM IN PLACE TO SACRALCOCCYX. IV WNL TO RFA, PATENT, IV FLUIDS FLOWING. FALL PREC IN PLACE. INSTRUCTED TO USE CALL LIGHT TO CALL FOR ASSISTANCE PRN. VERBALIZED UNDERSTANDING. WILL CONTINUE TO MONITOR.
[2019-05-14 07:44] LABS: IRON 18 ug/dL (50-170); TOTAL IRON BINDING CAPACITY 158 ug/dL (250-450)
[2019-05-14 08:05] VITALS: BP 107/51
[2019-05-14 08:18] LABS: PHOSPHOROUS 3.9 mg/dL (2.5-4.9)
[2019-05-14 08:23] LABS: CHOLESTEROL/HDL RATIO 3.9
[2019-05-14 08:53] LABS: PLATELET COUNT 496 x10^3mcL (130-400); RED CELL DISTRIBUTION WIDTH 18.7 % (11.5-14.5)
--- NOTE | 2019-05-14 12:26 | NUR ---
PT RESTING IN BED WITH BOTH EYES CLOSED. NO S/S OF ACUTE DISTRESS. NO SOB ON ROOM AIR. NO COMPLAINT OF ABD. PAIN AT THIS TIME. NO N/V. ASPIRATION PRECAUTIONS IN PLACE. FALL PRECAUTIONS IN PLACE. SCDS IN PLACE TO BLE, BLE ELEVATED WITH PILLOW. IV WNL, IV FLUIDS FLOWING. NO CHEST PAIN. BED IN LOW POSITION. CALL LIGHT WITHIN REACH. WILL CONTINUE TO MONITOR.
[2019-05-14 12:53] VITALS: BP 111/55
[2019-05-14 12:58] VITALS: BP 111/55
[2019-05-14 13:29] LABS: rbc morphology (normal/abnorm) ABNORMAL (NORMAL)
--- NOTE | 2019-05-14 15:03 | NUR ---
PT WAS SEEN FOR DYSPHAGIA.PT WAS ABLE TO SAFELY SWALLOW PUREE DIET WITH THIN LIQUID WITHOUT S/S OF ASPIRATION. PT HAD DIFFICULTY WITH MASTICATION SKILLS. RECOMMENDATION PUREE DIET WITH THIN LIQUID SMALL BITES AND SIPS ON;Y.
[2019-05-14 16:08] VITALS: BP 106/58
--- NOTE | 2019-05-14 20:03 | NUR ---
PT CURRENTLY RESTING IN BED, NO ACUTE DISTRESS. A/O X4. HX OF CVA WITH LEFT SIDED DEFICITS. LEFT EYE POOR VISION. TELE #10 SHOWING SINUS RHYTHM, DENIES CHEST PAIN. PULSES PALPABLE IN ALL EXTREMITIES, BLE TRACE EDEMA. LUNG SOUNDS DIMINISHED IN BILATERAL BASES, DENIES SOB. BOWEL SOUNDS ACTIVE, LAST BM 05/14/19. INCONTINENT. LEFT SIDED WEAKNESS NOTED. LEFT BUTTOCK WOUND LIZ. SACRAL ERRYTHEMA, OPTIFOAM DRESSING CDI. BED IN LOWEST POSITION, SIDE RAILS UP X2, CALL LIGHT WITHIN REACH. WILL CONTINUE TO MONITOR.
--- NOTE | 2019-05-14 20:30 | NUR ---
NEW IV STARTED IN RFA, PT TOLERATED WELL. IV PATENT AND INTACT.
--- NOTE | 2019-05-14 20:30 | NUR ---
PT TRANSPORTED BY RADIOLOGY FOR HIDA SCAN. NO ACUTE DISTRESS.
[2019-05-14 20:57] VITALS: BP 100/51
--- NOTE | 2019-05-14 23:51 | NUR ---
PT RETURNED FROM HIDA SCAN, NO ACUTE DISTRESS. BED IN LOWEST POSITION, SIDE RAILS UP X2, CALL LIGHT WITHIN REACH. WILL CONTINUE TO MONITOR.
[2019-05-15 05:12] VITALS: BP 110/49
[2019-05-15 06:33] LABS: BASOPHIL % 0.3 % (0-2)
--- NOTE | 2019-05-15 06:48 | NUR ---
PT SLEPT PERIODICALLY THROUGHOUT NIGHT, NO ACUTE DISTRESS. ALL NEEDS MET AND ATTENDED TO. NO SIGNIFICANT CHANGES. IV PATENT AND INTACT. BED IN LOWEST POSITION, SIDE RAILS UP X2, CALL LIGHT WITHIN REACH. WILL ENDORSE CARE TO ONCOMING NURSE.
[2019-05-15 06:58] LABS: CALCIUM 7.7 mg/dL (8.5-10.1); CARBON DIOXIDE 21.2 mmol/L (21-32); CHLORIDE SERUM 108 mmol/L (98-107); CREATININE SERUM 0.6 mg/dL (0.6-1.0); GFR1 > 60 mL/min; GLUCOSE SERUM 75 mg/dL (74-106); MAGNESIUM 1.9 mg/dL (1.8-2.4); PHOSPHOROUS 3.2 mg/dL (2.5-4.9); POTASSIUM SERUM 3.2 mmol/L (3.5-5.1); SODIUM SERUM 141 mmol/L (136-145)
--- NOTE | 2019-05-15 07:25 | NUR ---
SEEN IN BED AAOX4. NO SOB. BREATHING E/U ON ROOM AIR. NSR ON TELE# 10. DENIES PAIN. GEN BODY WEAKNESS GREATHER ON LEFT SIDE FROM HX OF CVA. DIMINISHED LUNG SOUND. INCONTINENCE. OPTIFOAM TO COCCYX INPLACE. TRACE EDEMA TO BLE, PEDAL PULSES PALPABLE. IVF NS TO RFA INFUSING AT 50ML/HR. CALL LIGHT NOTED WITHIN EASY REACH. SIDERAILS UP X2.
--- NOTE | 2019-05-15 08:00 | NUR ---
ABLE TO FEED SELF USING RIGHT HAND, FINISHED 100% OF PUREE DIET. AM SCHEDULED MEDS GIVEN. NO ASPIRATION NOTED. KEPT HOB AT 45DEG. DENIES PAIN.
[2019-05-15 08:42] LABS: PLATELET COUNT 564 x10^3mcL (130-400)
[2019-05-15 08:55] VITALS: BP 113/59
--- NOTE | 2019-05-15 09:00 | NUR ---
REFUSED TO BE TURNED AND REPOSITIONED AT THIS TIME. IVF NS AT 50ML/HR INFUSING WELL TO RFA IV SITE. CALL LIGHT REINSTRUCTED AND PLACED WITHIN EASY REACH.
--- NOTE | 2019-05-15 10:20 | NUR ---
FAMILY AT BEDSIDE. UPDATED PLAN OF CARE.
--- NOTE | 2019-05-15 12:04 | NUR ---
HAD LARGE LOOSE BM, PERIANAL CARE PROVIDED, NEW OPTIFOAM APPLIED TO COCCYX. REPOSITIONED. ON AIRLOSS MATTRESS. CALL LIGHT PLACED WITHIN EASY REACH. SIDERAILS UP X2.
[2019-05-15 12:41] VITALS: BP 105/58
--- NOTE | 2019-05-15 13:21 | NUR ---
Initial Nutrition Assessment: Denise Ghotra [id number]-[id number] Dx: Severe Sepsis, UTI PMHx: CVA with L sided weakness, HTN, Renal stones PSHx: G-tube insertion Labs: (05/15) K:3.2L, Ca:7.7L, H/H:7.3/23L (05/14) HDL:25L Meds: Colace, Ferrous sulfate, NS IV, Zosyn Diet: Pureed with thin liquids PO Intake: (05/14) B:75% L:100% (05/15) B:80% Ht: 60in, 5 ft Wt:120#, 54.431kg BMI:23.4kg/m2 (normal) Bed scale: 55kg IBW:100#, 45kg %IBW: 120% UBW: 120# Age: 69 y/o female Food Allergies: NKFA Skin:left buttock wound Liborio: 14 Edema: trace to BLE GI:active bowel sounds Last BM:05/14 Nursing Trigger: appears underweight/malnourished Consult:CVA diffuculty swallowing, severe malnutrition Per H&P, pt with c/o productive cough for 3 days, generalized weakness, nausea, chills and sweating. Pt also with c/o diffuse abd pain. Per progress note 05/14, pt will be seen by surgeon, GI. Swallow eval and wound care are in progress. HIDA scan to r/o biliary tree disease. During visit, pt was seen sitting up in bed eating her lunch. Pt reports to having a good appeitie with no c/o GI issues. Pt reported to having a hard time swallowing but able to tolerate pureed foods. Problem with: N/V/D/C: No Problems with: Chewing+ Swallowing: yes Current appetite: Good Recent wt change:no %wt change:0% Vitamin/Supplement use:MVI Special diet at home:sofr pureed Physical activity:no Nutrition education given: no , pt was eating. Food-drug interactions? Ferrous sulfate Education given?no, pt wanted to eat lunch and declined education. Estimated Nutritional Needs Based on actual body weight 54kg Energy: 1350-1620kcal/d (25-30kcal/kg for maintenance) Protein:54-65g/d (1-1.2g/kg for geriatric maintenance) Fluid:5620-7677 ml/d (1 ml/kcal) or per doctor Nutrition Diagnosis 1. Chewing difficulty related to significant fatigue with solid textures per SUPERVISOR ENGRAVING as evidenced by pt on pureed diet. Intervention 1. Recommend continue with pureed diet with thin liquids per SUPERVISOR ENGRAVING recommendations. Monitor/Evaluate Goal: PO intake at least 75% of estimated needs Monitor: PO intake, Labs, GI function F/U in 3-5 days as moderate risk:05/18-
--- NOTE | 2019-05-15 13:21 | NUR ---
1. Recommend continue with pureed diet with thin liquids per FAMILY LIFE EDUCATOR recommendations.
[2019-05-15 16:35] VITALS: BP 121/63
--- NOTE | 2019-05-15 18:19 | NUR ---
NO ANY DISTRESS THROUGHOUT SHIFT. ABLE TO TOLERATE PUREE DIET WELL, NO ASPIRATION. ALL SCHEDULED MEDS GIVEN. IVF NS TKO AT 10ML/HR INFUSING WELL TO RFA IV SITE. TURNED@REPOSITION Q 2HRS.
[2019-05-15 19:34] VITALS: BP 115/49
--- NOTE | 2019-05-15 20:00 | NUR ---
PT CURRENTLY RESTING IN BED, NO ACUTE DISTRESS. A/O X4. LEFT EYE VISUAL DEFICIT. TELE #10 SHOWING SINUS RHYTHM, DENIES CHEST PAIN. PULSES PALPABLE IN ALL EXTREMITIES, BLE TRACE EDEMA NOTED. LUNG SOUNDS DIMINISHED IN BILATERAL BASES, SVETA CRACKLES, DENIES SOB. BOWEL SOUNDS ACTIVE, LAST BM 05/15/19. INCONTINENCE NOTED. LEFT SIDED WEAKNESS, LEFT HAND CONTRACTED. LEFT BUTTOCK WOUND, MANAGER TRAFFIC. SACRAL ERRYTHEMA, OPTIFOAM DRESSING CDI. C/O SHOULDER PAIN 5/10, REFUSING PAIN MEDICATION AT THIS TIME. IV PATENT AND INTACT. BED IN LOWEST POSITION, SIDE RAILS UP X2, CALL LIGHT WITHIN REACH. WILL CONTINUE TO MONITOR.
--- NOTE | 2019-05-16 00:04 | NUR ---
PT CURRENTLY RESTING IN BED, NO ACUTE DISTRESS. WILL CONTINUE TO MONITOR.
[2019-05-16 04:02] VITALS: BP 100/54
[2019-05-16 06:38] LABS: BASOPHIL % 1.3 % (0-2)
--- NOTE | 2019-05-16 06:47 | NUR ---
PT SLEPT PERIODICALLY THROUGHOUT NIGHT, NO ACUTE DISTRESS. ALL NEEDS MET AND ATTENDED TO. NO SIGNIFICANT CHANGES. IV SITE FOUND SWOLLEN, DC'D AND WARM COMPRESS APPLIED. NEW IV STARTED IN RIGHT HAND, PATENT AND INTACT. BED IN LOWEST POSITION, SIDE RAILS UP X2, CALL LIGHT WITHIN REACH. WILL ENDORSE CARE TO ONCOMING NURSE.
[2019-05-16 07:05] LABS: CALCIUM 7.9 mg/dL (8.5-10.1); CARBON DIOXIDE 20.7 mmol/L (21-32); CHLORIDE SERUM 109 mmol/L (98-107); CREATININE SERUM 0.7 mg/dL (0.6-1.0); GFR1 > 60 mL/min; GLUCOSE SERUM 76 mg/dL (74-106); POTASSIUM SERUM 4.1 mmol/L (3.5-5.1); SODIUM SERUM 139 mmol/L (136-145)
[2019-05-16 07:17] LABS: PLATELET COUNT 439 x10^3mcL (130-400)
--- NOTE | 2019-05-16 07:20 | NUR ---
SEEN IN BED AAOX4. FINNISH SPEAKING. BREATHING E/U ON ROOM AIR. ON TELE#10 NSR. DENIES PAIN. GEN BODY WEAKNESS GREATHER ON LEFT SIDE FROM HX OF CVA. BED BOUND AT HOME. ON AIRLOSS MATTRESS. WILL CONTINUE TO TURN&REPOSITION Q 2HRS. SCD TO BLE INPLACE. OPTIFOAM TO COCCYX ERYTHEMA DRY/INTACT. IVF NS AT 10ML/HR TO RT HAND IV SITE INFUSING WELL. CALL LIGHT PLACED WITHIN EASY REACH. SIDERAILS UP X2.
--- NOTE | 2019-05-16 08:30 | NUR ---
TOLERATED TO PUREE DIET WELL. ABLE TO FEED SELF. NO ASPIRATION NOTED.
[2019-05-16 09:00] VITALS: BP 110/54
--- NOTE | 2019-05-16 09:00 | NUR ---
SARAH MOFFETT AT BEDSIDE FOR AM ROUND.
[2019-05-16 13:42] VITALS: BP 118/62
--- NOTE | 2019-05-16 14:15 | NUR ---
FAMILY MEMBERS AT BEDSIDE. UPDATED PLAN OF CARE.
--- NOTE | 2019-05-16 15:00 | NUR ---
HAD LARGE LOOSE BM PERIANAL CARE PROVIDED, Z GUARD APPLIED AND NEW OPTIFOAM APPLIED TO COXXYX AREA. REPOSITIONED. KEPT HOB AT 30 DEG. CALL LIGHT PLACED WITHIN EASY REACH.
[2019-05-16 17:01] VITALS: BP 96/57
--- NOTE | 2019-05-16 18:25 | NUR ---
PICC LINE NURSE MIRTHA WAS HERE, MADE AWARE OF PATIENT NEEDS PICC LINE INSERTION FOR CONT. IV ABX. PER MIRTHA, SHE WILL INFORME HER SELF STORAGE MANAGER TO SENT NURSE IN AM FOR PROCEDURE.
--- NOTE | 2019-05-16 18:58 | NUR ---
IV CATHETER TO RIGHT HAND ACCIDENTLY FELL OFF, NO ERYTHEMA OR SWELLING TO SITE. NEW IV CATH#22 INSERTED TO RIGHT HAND WITH GOOD BLD RETURNED AND FLUSHED WELL. ZOSYN IVPB INFUSING WELL AT THIS TIME.
[2019-05-16 19:42] VITALS: BP 100/50
--- NOTE | 2019-05-16 19:42 | NUR ---
PT CURRENTLY RESTING IN BED, NO ACUTE DISTRESS. A/O X4. HX OF CVA, LEFT SIDED DEFICITS NOTED. LEFT EYE VISUAL DEFICIT. DIFFICULTY SWALLOWING. TELE #10 SHOWING SINUS RHYTHM, DENIES CHEST PAIN. PULSES PALPABLE IN ALL EXTREMITIES, BLE TRACE EDEMA NOTED. LUNG SOUNDS DIMINISHED IN BILATERAL BASES, DENIES SOB. BOWEL SOUNDS ACTIVE, LAST BM 05/16/19. INCONTINENCE NOTED. LEFT SIDED WEAKNESS. AIR MATTRESS IN PLACE, PT REFUSING REPOSITIONING AT THIS TIME. LEFT BUTTOCK WOUND, LIZ. SACRAL ERRYTHEMA, OPTIFOAM DRESSING CDI. IV PATENT AND INTACT. BED IN LOWEST POSITION, SIDE RAILS UP X2, CALL LIGHT WITHIN REACH. WILL CONTINUE TO MONITOR.
--- NOTE | 2019-05-17 01:31 | NUR ---
PT CURRENTLY RESTING IN BED, NO ACUTE DISTRESS. WILL CONTINUE TO MONITOR.
[2019-05-17 05:12] VITALS: BP 103/55
--- NOTE | 2019-05-17 06:04 | NUR ---
PT SLEPT PERIODICALLY THROUGHOUT NIGHT, NO ACUTE DISTRESS. ALL NEEDS MET AND ATTENDED TO. NO SIGNIFICANT CHANGES. IV PATENT AND INTACT. WOUND PHOTOS TAKEN. BED IN LOWEST POSITION, SIDE RAILS UP X2, CALL LIGHT WITHIN REACH. WILL ENDORSE CARE TO ONCOMING NURSE.
[2019-05-17 06:07] LABS: BASOPHIL % 0.3 % (0-2)
[2019-05-17 06:29] LABS: CALCIUM 8.1 mg/dL (8.5-10.1); CARBON DIOXIDE 23.8 mmol/L (21-32); CHLORIDE SERUM 108 mmol/L (98-107); CREATININE SERUM 0.8 mg/dL (0.6-1.0); GFR1 > 60 mL/min; GLUCOSE SERUM 79 mg/dL (74-106); POTASSIUM SERUM 4.2 mmol/L (3.5-5.1); SODIUM SERUM 141 mmol/L (136-145)
[2019-05-17 06:31] LABS: PLATELET COUNT 554 x10^3mcL (130-400); RED CELL DISTRIBUTION WIDTH 18.8 % (11.5-14.5)
--- NOTE | 2019-05-17 07:41 | NUR ---
RECEIVED PT'S REPORT. PT REST ON BED, AIR MATTRESS APPLIED. PT NO COMPLAIN OF PAIN AT THIS TIME. PT BREATHING ON RA, EVEN, UNLABORED. IV SITE PATENT, INTACT. TKO IS INFUSING.
[2019-05-17 08:26] VITALS: BP 103/55
[2019-05-17 08:36] VITALS: BP 108/54
--- NOTE | 2019-05-17 09:54 | NUR ---
PT'S DAUGHTER IN LAW CAME AND STATED SHE AND HER GOT INFORMED ABOUT PICC LINE INSERTION AND PT AGREED WITH IT. NP. MOFFETT AT BED SIDE EXPLAINED TREATMENT PLAN. PT'S DAUGHTER IN LAW STATED THEY WOULD LIKE TO HAVE PT GO HOME WITH HOME HEALTH AND CONTINUE IV ANTIBIOTICS. PICC CONSENT SIGNED. PICC LINE NURSE BILL CALLED AND VOICE MESSAGE LEFT. WILL CALL HIM AGAIN. MADE SARAH MOFFETT AWARE PT'S H/H 7.10/14 LOW.
--- NOTE | 2019-05-17 10:28 | NUR ---
PICC LINE NURSE SPRING CALLED AND STATED HE WILL BE HERE IN AN HOUR.
[2019-05-17 11:37] VITALS: BP 100/56
--- NOTE | 2019-05-17 11:59 | NUR ---
PICC NURSE AND US STAFF BEDSIDE. PT'S DAUGHTER IN LAW BED SIDE AT THIS TIME. PICC NURSE EXPLAIN PROCEDURE. TIME OUT PEFORMED. STUDENT NURSE OBSERVE PROCEDURE BEDSIDE.
--- NOTE | 2019-05-17 12:11 | NUR ---
MEDLINE INSERTED AT BEDSIDE. 19CM IN, 1CM OUT PER PICC NURSE'S REPORT. PT TOLERATE WELL AT THIS TIME. WILL CONTINUE TO MONITOR.
--- NOTE | 2019-05-17 12:25 | NUR ---
CALLED AND MAKE CASH APPLICATIONS REPRESENTATIVE ZUHAIR AWARE MEDLINE IS INSERTED.
--- NOTE | 2019-05-17 14:57 | NUR ---
PT COMPLAIN OF LEFT SIDE PAIN, MADE FURNITURE SALES ASSOCIATE ZUHAIR AWARE AND OBTAINED TELEPHONE ORDER: NORCO 5, PO Q6H PRN.
[2019-05-17 16:49] VITALS: BP 108/64
--- NOTE | 2019-05-17 18:44 | NUR ---
OPTIFORMED CHANGED AND Z-GUARD APPLIED TO PT'S BUTTOCK. REPOSITION PT. PT REPORT MILD PAIN ON LEFT SIDE WHEN REPOSITION, BUT NOT REQUEST PAIN MED MANAGEMENT. PT BREATHING ON RA, EVEN, UNLABORED. HEEL PROTECTOR BOOTS APPLIED TO BLE FOR FOOT DROP. MEDLINE PATENT, INTACT. ZOSY IS INFUSING. WILL ENDORSE PT'S CARE TO COMING NURSE.
--- NOTE | 2019-05-17 19:33 | NUR ---
PT REPORTED ITCHNESS AROUND FACE AND NECK, REDNESS NOTED. MADE DR. MONTES AWARE. PT'S SON AT BED SIDE. ENDORSE PT'S CARE TO COMING NURSE.
--- NOTE | 2019-05-17 20:15 | NUR ---
PT. AWAKE, ALERT, ORIENTED TO SELF AND PLACE. CONFUSED AT TIMES PER FAMILY. HX OF CVA W/ RESIDUAL LT. SIDED WEAKNESS. BLE FOOT DROP NOTED. SOME GENERALIZED WEAKNESS ALSO NOTED. SPEECH CLEAR BUT SLOW. ABLE TO FOLLOW MOST COMMANDS. BREATH SOUNDS DIMINISHED BLL, COUGH VERY CONGESTED. RESP. EVEN, UNLABORED. PT. ON RA. NO SOB NOTED. TRACE EDEMA NOTED TO BLE. PEDAL PULSES MODERATE. PT. WEARING DICK BOOTHIES FOR FOOT DROP. RUE MID LINE NOTED, NEWLY INSERTED TODAY PER REPORT, SITE W/ DRSG CDI, SLIGHT REDNESS JUST BELOW SITE OF INSERTION, DENIES ANY PAIN AT SITE. OPTIFORM TO BUTTOCKS AREA, SOME ERYTHEMA NOTED. CALL LIGHT WITHIN REACH. FAMILY AT BEDSIDE.
[2019-05-17 20:41] VITALS: BP 112/70
--- NOTE | 2019-05-18 00:30 | NUR ---
PT. APPEARS TO BE SLEEPING, EYES CLOSED. NO C/O PAIN THUS FAR. NO RESP. DISTRESS. CALL LIGHT WITHIN REACH
[2019-05-18 05:06] VITALS: BP 110/72
--- NOTE | 2019-05-18 06:40 | NUR ---
PT. HAD UNEVENTFUL NIGHT. SLEPT WELL. NO RESP. DISTRESS THROUGHOUT THE NIGHT. NO C/O PAIN. MID LINE REMAINS IN-SITU. DICK HEEL PROTECTORS ON. CALL LIGHT WITHIN REACH. WILL ENDORSE PT. CARE TO INCOMING NURSE.
[2019-05-18 06:57] LABS: CALCIUM 8.2 mg/dL (8.5-10.1); CARBON DIOXIDE 24.3 mmol/L (21-32); CHLORIDE SERUM 106 mmol/L (98-107); CREATININE SERUM 0.7 mg/dL (0.6-1.0); GFR1 > 60 mL/min; GLUCOSE SERUM 75 mg/dL (74-106); POTASSIUM SERUM 3.7 mmol/L (3.5-5.1); SODIUM SERUM 140 mmol/L (136-145)
--- NOTE | 2019-05-18 07:10 | NUR ---
RECEIVED REPORT FROM MELANIE RN, PT IN BED W/ NO ACUTE DISTRESS
--- NOTE | 2019-05-18 07:10 | NUR ---
RECEIVED PT IN BED, CALM AND COPPERATIVE, VERBAL, ALBANIAN, ABLE TO FOLLOWED COMMAND, NO REDNESS/DRAINAGE, RESP EVEN, NO SOB/COUGH, DIM BLL, TELE # 10, NSR, ABD SOFT AND NON-TENDER TO TOUCH, TRACE EDEMA TO BLE, BS ACTIVE X 4, INCONTINENT, BEDBOUND, (L) SIDED WEAKNESS, IV PATENT AND NO INFILTRATION NOTED, DRESSING CDI, SKIN W/D/C, SEE SKIN ASSESSMENT, TURN Q2H, PALP PULSES, CAP REFILL < 3S, ALL NEEDS ADDRESSED AT THIS TIME, SAFETY PROTOCOL FOLLOWED, CONTINUE TO MONITOR
[2019-05-18 07:13] LABS: BASOPHIL % 0.3 % (0-2)
[2019-05-18 07:22] LABS: PLATELET COUNT 584 x10^3mcL (130-400)
[2019-05-18 07:51] VITALS: BP 128/65
--- NOTE | 2019-05-18 10:10 | NUR ---
PT IN BED, IN NO ACUTE DISTRESS, AM MED GIVEN PER MD ORDER VIA EMAR, TAKEN WELL, NO ASE NOTED AT THIS TIME, SAFETY MONITOR, CONTINUE TO MONITOR
--- NOTE | 2019-05-18 10:18 | NUR ---
WOUND CARE EVALUATION NOTE: REASON FOR EVALUATION: LOW AIYANA SCORE AND BUTTOCK WOUND SKIN ASSESSMENT WITH THIS 69 Y/O FEMALE PT [place] [facility] [place] SEVERE SEPSIS, UTI. 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 ALL ABOVE INFORMATION OBTAINED FROM ADMISSION H&P. PT IS AWAKE. SKIN IS WARM AND FLAKY, BLE FEW HAIR GROWTH, NO EDEMA. DORSAL PEDAL PULSES PRESENT AND NORMAL. CAPILLARY REFILLED < 2 SEC. X 10 TOES. INCONTINENT OF BOWEL AND BLADDER. PLAN OF CARE DISCUSSED WITH PRIMARY RN. INTEGUMENTARY: -XEROSIS TO DORSAL FEET WITH FOOT DROP OBSERVED -INCOTINENT ASSOCIATE DERMATITIS (IAD): REDNESS TO PERIANAL AND LEFT BUTTOCK SUPERFICIAL SKIN EROSION 1X1 CM, WOUND BED IS PINK AND MOIST, RALPH WOUND SKIN INTACT WITH DRY NESS -MULTIPLE HEALED SCARS TO SACRALCOCCYX AND LOWER BUTTOCKS -BLANCHABLE REDNESS TO BILATERAL HEELS RECOMMENDATIONS: -KEEP SKIN DRY AND CLEAN AT ALL TIMES, PLEASE CHECK Q2H AND PRN FOR INCONTINENCY OF BOWEL AND BLADDER. -APPLY HYDRAGUARD TO ALL EXTREMITINES /DORSAL FEET BID AND LEAVE IT OPEN TO AIR - CLEANSE WITH SOAP AND WATER, PAT DRY, APPLY Z GUARD TO PERIANAL AND LEFT BUTTOCK BID AND PRN IF SOILING -APPLY FORM DRESSING TO SACROCOCCY Q7 DAYS AND PRN IF SOILING PREVENTION -APPLY HEEL RAISER TO BILATERAL HEELS AT ALL TIMES -OFFLOAD BILATERAL HEELS BY PLACING PILLOWS UNDER CALVES UNLESS OTHERWISE CONTRAINDICATED -PRESSURE REDISTRIBUTION SURFACE THERAPY -TURN AND REPOSITION Q2H, OFFLOAD SACRALCOCCYX AND BUTTOCKS BY TURNING RIGHT AND LEFT -CONTINUE TO FOLLOW RD RECOMMENDATIONS ALL ABOVE RECOMMENDATIONS DISCUSSED WITH PRIMARY RN. PLEASE CONTACT WOUND CARE NURSE FOR ANY QUESTION AND CHANGE OF WOUND CONDITION.
--- NOTE | 2019-05-18 10:54 | NUR ---
CASFACVY-QS-DRB AT BEDSIDE GOT UODATED PT CURRENT CONDITION, NO FURTHER CONCERNS NEEDED AT THIS TIME, PT IN BED NO ACUTE DISTRESS
[2019-05-18 11:50] VITALS: BP 96/51
--- NOTE | 2019-05-18 14:16 | NUR ---
VOID X 1, SKIN CLEANSED, TURN Q2H, SKIN CARE DONE, TAKEN WELL, SKIN D/W/C, SKIN MONITOR PROTOCOL FOLLOWED, CONTINUE TO MONITOR
--- NOTE | 2019-05-18 15:50 | NUR ---
PT TRANSFER TO [facility], TELE #10 REMOVED AND RETURNED TO [facility], PT NOT IN ACUTE DISTRESS
--- NOTE | 2019-05-18 17:47 | NUR ---
PT RESTING IN BED, IN NO ACUTE DISTRESS, VERBAL, RESP EVEN, NO SOB/COUGH, MEDSURG, DENIED CP/PRESSURE/BURNETT, DENIED N/V/D, ABD SOFT AND NON-TENDER TO TOUCH, TURN Q2H, PALP PULSES, CAP REFILL < 3S, SKIN W/D/C, DRESSING CDI, ALL NEEDS ADDRESSED AT THIS TIME, SAFETY PROTOCOL FOLLOWED, WILL ENDORSE TO ONCOMING RN
--- NOTE | 2019-05-18 19:43 | NUR ---
PT. AWAKE, ALERT, SITTING UP IN BED, FAMILY AT BEDSIDE. PT. ORIENTED TO SELF AND PLACE. DENIES HEADACHE OR DIZZINESS. BREATH SOUNDS DIMINISHED BLL, RESP. EVEN, UNLABORED. NO SOB NOTED. PT. ON ROOM AIR. INTERMITTENT CONGESTED COUGH NOTED. TRACE EDEMA TO BLE. PEDAL PULSES MODERATE DICK. DICK FOOT DROP NOTED. KT HAND CONTRACTURE NOTED. ABD. SOFT AND FLAT, BOWEL SOUNDS ACTIVE. MIDLINE TO RUE INTACT. OPTIFORM TO COCCYX AREA.
[2019-05-18 20:59] VITALS: BP 118/71
--- NOTE | 2019-05-18 23:57 | NUR ---
PT. CLEANED UP EARLIER, REPOSITIONED AND MADE COMFORTABLE. NO COMPLAINTS THUS FAR. NO RESP. DISTRESS. REMAINS ON ROOM AIR. CALL LIGHT WITHIN REACH.
[2019-05-19 05:33] VITALS: BP 104/57
--- NOTE | 2019-05-19 06:17 | NUR ---
PT. SLEPT WELL THROUGHOUT NIGHT. PT. GIVEN BED BATH AND MADE COMFORTABLE. IV NS INFUSING WELL TO MIDLINE. BOOTIES TO BLE ON. NO C/O PAIN THROUGHOUT NIGHT. CALL LIGHT WITHIN REACH. WILL ENDORSE PT. CARE TO INCOMING NURSE.
--- NOTE | 2019-05-19 07:20 | NUR ---
SEEN IB BED AWAKE,ALERT, ORIENTED, SPEECH CLEAR IN [place]. BREATHING E/U ON ROOM AIR. DIMINISHED LUNG SOUND. GEN BODY WEAKNESS GREATHER ON LEFT SIDE FROM HX OF CVA. BED RIDDEN, ON AIRLOSS MATTRESS, OPTIFOAM TO BUTTOCK INPLACE, HEEL PROTECTORS TO BOTH FEET. SCD TO BLE INPLACE. MIDLINE TO FELIPE WITH DRSG CDI, IVF NS AT 10ML/HR INFUSING WELL. CALL LIGHT PLACED WITHIN EASY REACH. SIDERAILS UP X2.
[2019-05-19 07:34] LABS: BASOPHIL % 0.3 % (0-2)
[2019-05-19 07:59] LABS: CALCIUM 8.1 mg/dL (8.5-10.1); CARBON DIOXIDE 25.2 mmol/L (21-32); CHLORIDE SERUM 106 mmol/L (98-107); CREATININE SERUM 0.7 mg/dL (0.6-1.0); GFR1 > 60 mL/min; GLUCOSE SERUM 72 mg/dL (74-106); POTASSIUM SERUM 3.7 mmol/L (3.5-5.1); SODIUM SERUM 140 mmol/L (136-145)
--- NOTE | 2019-05-19 08:00 | NUR ---
ABLE TO FEED SELF, ON PUREE DIET, NO ASPIRATION PRECAUTION, NOTED FINISHED 100% OF BREAKFAST. TURNED AND REPOSITIONED.
[2019-05-19 08:56] VITALS: BP 96/53
[2019-05-19] MEDS ORDERED: FER300 PO (10:00)
[2019-05-19] MEDS ORDERED: ZOS3PM IV (10:01)
--- NOTE | 2019-05-19 10:46 | NUR ---
PATIENT'S DAUGHTER IN LAW AT BEDSIDE. UPDATED PLAN OF CARE.
[2019-05-19 13:03] VITALS: BP 96/53
[2019-05-19 14:07] LABS: PLATELET COUNT 601 x10^3mcL (130-400)
[2019-05-19 17:28] VITALS: BP 116/58
--- NOTE | 2019-05-19 17:46 | NUR ---
SPOKE TO PATIENT'S DAUGHTER IN LAW (LLOYD) MADE AWARE THAT PATIENT WILL BE DISCHARGED HOME AFTER DINNER. PER LLOYD, SHE WILL BE HERE TO OCCUPATIONAL HEALTH NURSE MANAGER PATIENT WITHIN AN HOUR.
--- NOTE | 2019-05-19 18:55 | NUR ---
DISCHARGE INSTRUCTION AND PRESCRIPTION EXPLAINED AND GIVEN TO PATIENT'S SON. MIDLINE TO FELIPE WITH DRSG CDI, FLUSHED PATENT, CAPPED. INSTRUCTED PATIENT'S FAMILY TO KEEP MIDLINE SITE CLEAN, DRY AND DRSG INTACT AT ALL TIME. OPTIFOAM REMOVED, WOUND TO LT BUTTOCK TAKEN, NEW OPTIFOAM APPLIED. ASSISTED BY PATIENT'S SON TO TRANSFER PATIENT FROM BED TO WHEELCHAIR. BROUGHT TO [facility] ACCOMPANIED BY [employer] RESEARCHER AND FAMILY. CONDITION STABLE UPON DISCHARGE HOME.
== END 2019-05-19 18:55 | disposition home or self-care (01) | DRG 871 ==
LOC: ED 14:14 → DU 19:35 → MU 05-18 15:46
PROVIDERS: Internal Medicine; Specialist; ADMIT General Practice
DX: A41.9 Sepsis, unspecified organism (principal); N17.0 Acute kidney failure with tubular necrosis; E43 Unspecified severe protein-calorie malnutrition; I69.354 Hemiplegia and hemiparesis following cerebral infarction affecting left non-dominant side; N39.0 Urinary tract infection, site not specified; J90 Pleural effusion, not elsewhere classified; K81.0 Acute cholecystitis; E78.5 Hyperlipidemia, unspecified; I10 Essential (primary) hypertension; D50.9 Iron deficiency anemia, unspecified; N28.89 Other specified disorders of kidney and ureter; E86.0 Dehydration; Z74.01 Bed confinement status; Z99.3 Dependence on wheelchair; Z68.30 Body mass index [BMI] 30.0-30.9, adult
CPT/HCPCS: 36600; 78226; 82962; 83880; 84439; 87804; 92526-GN; 92610-GN; 94150; A9537; C1751; G0378; J0696; J2543; J3490; J7030; J7060; J7620; Q0092; Q0163

== ENCOUNTER 2020-07-11 09:06 | Day surgery (SDC) | payer OTHER ==
[2020-07-07 12:17] LABS: BASOPHIL % 0.5 % (0-2); PLATELET COUNT 253 x10^3mcL (130-400)
[2020-07-07 12:38] LABS: RED CELL DISTRIBUTION WIDTH 22.4 % (11.5-14.5)
[2020-07-07 12:44] LABS: CALCIUM 9.2 mg/dL (8.5-10.1); CARBON DIOXIDE 26.5 mmol/L (21-32); CHLORIDE SERUM 107 mmol/L (98-107); CREATININE SERUM 0.7 mg/dL (0.6-1.0); GLUCOSE SERUM 89 mg/dL (74-106); POTASSIUM SERUM 4.3 mmol/L (3.5-5.1); SODIUM SERUM 141 mmol/L (136-145)
[2020-07-07 12:55] LABS: rbc morphology (normal/abnorm) ABNORMAL (NORMAL)
--- NOTE | 2020-07-07 18:08 | NUR ---
RESULTS OF LABS, CXR AND EKG FAXED TO DR MARQUEZ AND COPY TO OR FOR ANESTHESIOLOGIST TO REVIEW.
--- NOTE | 2020-07-10 08:41 | NUR ---
SPOKE WITH [facility]TA IN OR. PER DR PALUMBO, COPIES OF TEST RESULTS REVIEWED. NO NEW ORDERS AT THIS TIME. OK FOR PROCEDURE.
[~2020-07-11] VITALS: Ht 149.9 cm; Wt 57.1 kg
[~2020-07-11 09:06] MED LIST changes: +FER300 PO; +KEFLEX500 M1 PO; +ZOS3PM IV
[2020-07-11 09:50] VITALS: BP 118/90
[2020-07-11 13:28] VITALS: BP 129/67
== END 2020-07-11 13:15 | disposition home or self-care (01) ==
LOC: DS 09:06
PROVIDERS: ATTEND Radiology Diagnostic Radiology
DX: N13.30 Unspecified hydronephrosis (principal); N26.1 Atrophy of kidney (terminal); Z88.0 Allergy status to penicillin; Z20.828 Contact with and (suspected) exposure to other viral communicable diseases; Z86.73 Personal history of transient ischemic attack (TIA), and cerebral infarction without residual deficits
CPT/HCPCS: 50430; C1884; J2001; J7040; Q0092; Q9967; U0003-CS

== ENCOUNTER 2020-11-01 06:15 | Day surgery (SDC) | payer OTHER, SELFPAY ==
[2020-10-30 12:33] LABS: BASOPHIL % 0.9 % (0.2-1.3); PLATELET COUNT 294 x10^3mcL (179-408)
[2020-10-30 12:34] LABS: RED CELL DISTRIBUTION WIDTH 16.6 % (12.3-17.7)
[2020-10-30 13:03] LABS: ALKALINE PHOSPHATASE 138 U/L (46-116); ALT/SGPT 34 U/L (14-59); AST/SGOT 22 U/L (15-37); BILIRUBIN TOTAL 0.34 mg/dL (0.20-1.00); CALCIUM 9.3 mg/dL (8.5-10.1); CARBON DIOXIDE 30.4 mmol/L (21-32); CHLORIDE SERUM 108 mmol/L (98-107); CREATININE SERUM 0.7 mg/dL (0.6-1.0); GLUCOSE SERUM 92 mg/dL (74-106); POTASSIUM SERUM 4.7 mmol/L (3.5-5.1); SODIUM SERUM 143 mmol/L (136-145); TOTAL PROTEIN, SERUM 7.9 g/dL (6.4-8.2)
[2020-10-30 13:06] LABS: ALBUMIN 2.8 g/dL (3.4-5.0)
[~2020-11-01] VITALS: Ht 152.4 cm; Wt 77.1 kg
[~2020-11-01 06:15] MED LIST changes: +AMITIZA24 MC1 PO; +DUL10S RC; +MIRUD PO; +NOVAPLUS MEROPEN1 GM IV; +SEN PO; +TOR10 PO
[2020-11-01 06:40] VITALS: BP 139/74
[2020-11-01 12:01] VITALS: BP 156/75
== END 2020-11-01 11:30 | disposition home or self-care (01) ==
LOC: DS 06:15 → RD 09:00 → DS 11:30
PROVIDERS: ATTEND Urology
DX: N99.528 Other complication of incontinent external stoma of urinary tract (principal); Y83.8 Other surgical procedures as the cause of abnormal reaction of the patient, or of later complication, without mention of misadventure at the time of the procedure; N12 Tubulo-interstitial nephritis, not specified as acute or chronic; Z88.0 Allergy status to penicillin; Z87.440 Personal history of urinary (tract) infections
CPT/HCPCS: C1769; J0744; J2001; J7040; Q9967